=== PATIENT | female | born 1950 | race Caucasian/White ===

== ENCOUNTER 2016-08-24 19:31 | Emergency (ER) | payer OTHER ==
[~2016-08-24] VITALS: Ht 162.6 cm; Wt 72.6 kg
--- NOTE | 2016-08-24 20:22 | ED DYSPNEA/ASTHMA COMPLAINT ---
History of Present Illness General Chief Complaint: General Adult Stated Complaint: PT HAS BEEN ILL FOR 11DYS FLU SYMPTOMS Source: patient Exam Limitations: no limitations Vital Signs & Intake/Output Vital Signs & Intake/Output Vital Signs Date Time Temp Pulse Resp B/P Pulse O2 O2 Flow FiO2 Ox Delivery Rate 08/24 2200 97.0 80 18 160/80 97 Room Air 08/24 2037 96 Room Air 08/24 2017 98.1 81 18 152/90 94 Room Air ED Intake and Output 08/25 0000 08/24 1200 Intake Total Output Total Balance Patient 160 lb Weight Allergies Coded Allergies: Sulfa (Sulfonamide Antibiotics) (Severe, ANAPHYLAXIS 08/24/16) strawberry (Severe, ANAPHYLAXIS 08/24/16) Penicillins (ITCHING 08/24/16) Reconcile Medications Acetaminophen 500 MG TABLET 2 TAB PO PRN PAIN (Reported) Amlodipine Besylate 10 MG TABLET 1 TAB PO DAILY BP (Reported) Azithromycin (Zithromax) 250 MG TABLET 1 DP PO AD strep throa Levothyroxine Sodium 100 MCG TABLET 1 TAB PO DAILY THYROID (Reported) Triage Note: PT TO TRIAGE WITH C/O FEVER, CONGESTION, SORE THROAT, DRY COUGH, LLQ ABD INTERMITTENT PAIN, LEFT SIDED CHEST TIGHTNESS, HEADACHE, LOSS OF APPETITE x11 DAYS. PT AFEBRILE IN TRIAGE, VSS. FLU SWAB OBTAINED IN TRIAGE AND SENT TO LAB. Triage Nurses Notes Reviewed? yes Onset: Gradual Duration: day(s):, waxing and waning Timing: recent history Severity: moderate Activities at Onset: none Prior Episodes/Possible Cause: occasional episodes Modifying Factors: Worsens With: other. HPI: 66-year-old woman presents with 11 day history of sore throat headache, "not feeling well, ""weakness." She notes occasional cough but without phlegm. Her chest pain shortness of breath nausea vomiting diarrhea. She is otherwise well. Past History Travel History Traveled to [place] past 21 day No Medical History Any Pertinent Medical History? see below for history Cardiovascular: hypertension Endocrine: hypothyroidism Surgical History Surgical History: none Psychosocial History What is your primary language Korean Tobacco Use: Never used Family History Hx Contributory? No Review of Systems Review of Systems Constitutional: Reports: no symptoms. EENTM: Reports: no symptoms. Respiratory: Reports: no symptoms. Cardiovascular: Reports: no symptoms. GI: Reports: no symptoms. Genitourinary: Reports: no symptoms. Musculoskeletal: Reports: no symptoms. Skin: Reports: no symptoms. Neurological/Psychological: Reports: no symptoms. Hematologic/Endocrine: Reports: no symptoms. Immunologic/Allergic: Reports: no symptoms. All Other Systems: Reviewed and Negative Physical Exam Physical Exam General Appearance: well developed/nourished, no apparent distress Head: atraumatic, normal appearance, active bleeding Eyes: Bilateral: normal appearance. Ears, Nose, Throat: normal ENT inspection, pharyngeal erythema, no exudate, no swelling, no uvular deviation Neck: normal inspection, supple, full range of motion Respiratory: normal breath sounds, chest non-tender, no respiratory distress, quiet respiration Cardiovascular: regular rate/rhythm Gastrointestinal: normal bowel sounds, soft, non-tender, no organomegaly Extremities: normal inspection, normal capillary refill, normal range of motion Neurologic/Psych: no motor/sensory deficits, awake, alert, oriented x 3 Skin: intact, normal color, warm/dry Core Measures ACS in differential dx? No Severe Sepsis Present: No Septic Shock Present: No Progress Differential Diagnosis: strep vs influenza vs bronchitis vs pneumonia Plan of Care: Orders Procedure Date/time Status THROAT CULTURE W/QUICK STREP 08/24 2022 Complete RAPID VIRAL INFLUENZA A 08/25 1939 Complete URINALYSIS 08/25 1939 Complete TROPONIN LEVEL 08/25 1939 Complete LIPASE 08/25 1939 Complete COMPREHENSIVE METABOLIC PANEL 08/25 1939 Complete CBC WITHOUT DIFFERENTIAL 08/25 1939 Complete AMYLASE 08/25 1939 Complete EKG 08/25 1939 Active Laboratory Tests 08/24/162136: Urinalysis LIGHT H, Urine Color YEL, Urine Clarity CLEAR, Urine pH 6.0, Ur Specific [place] >= 1.030, Urine Protein TRACE H, Urine Ketones NEG, Urine Nitrite NEG, Urine Bilirubin NEG, Urine Urobilinogen 1.0, Ur Leukocyte Esterase NEG, Ur Microscopic SEDIMENT EXAMINED, Urine RBC RARE, Urine WBC RARE, Ur Epithelial Cells FEW, Urine Bacteria FEW H, Urine Mucus MOD H, Urine Hemoglobin NEG, Urine Glucose NEG 08/24/162020: Anion Gap 10, Estimated GFR > 60, BUN/Creatinine Ratio 16.3, Glucose 92, Calcium 9.3, Total Bilirubin 0.3, AST 17, ALT 35, Alkaline Phosphatase 94, Troponin I < 0.01, Total Protein 7.4, Albumin 3.9, Globulin 3.5, Albumin/Globulin Ratio 1.1, Amylase 60, Lipase 187, CBC w Diff NO MAN DIFF REQ, RBC 5.67 H, MCV 73.1 L, MCH 23.0 L, RDW 17.1 H, MPV 8.6, Gran % 63.2, Lymphocytes % 23.1, Monocytes % 11.9 H, Eosinophils % 1.4, Basophils % 0.4, Absolute Granulocytes 6.1, Absolute Lymphocytes 2.2, Absolute Monocytes 1.1 H, Absolute Eosinophils 0.1, Absolute Basophils 0, PUBS MCHC 31.5 L Microbiology 08/25 2019 NASOPHARYN: Influenza Virus A & B Rapid Smear - COMP Diagnostic Imaging: Viewed by Me: Radiology Read. Discussed w/RAD: Radiology Read. CXR Impression: no acute abnormality, no infiltrates, normal size heart, normal mediastinum Initial ED EKG: normal axis, normal intervals, normal p-waves, normal QRS complex, normal sinus rhythm Comments: PATIENT: ALAN HAMEED PRESENT AGE: 66 PATIENT ACCOUNT NO: [id number] : 49 LOCATION: [facility] ORDERING PHYSICIAN: TORI PICHARDO MD SERVICE DATE: 08/24/16-2024 EXAM TYPE: RAD - XRY-CHEST XRAY, PA AND LATERAL EXAMINATION: XR CHEST CLINICAL INFORMATION: Cough COMPARISON: None TECHNIQUE: 2 views of the chest were obtained. FINDINGS: Heart size is normal. Mediastinal contours are normal. Lungs are clear without consolidation, effusion or pneumothorax. Visualized osseous structures appear intact. Surgical clips noted in the upper abdomen. IMPRESSION: No acute cardiopulmonary process DICTATED BY: LAURA RICH MD DATE/TIME DICTATED:08/24/162112 IT PROGRAM MANAGER:MARCY DATE/TIME TRANSCRIBED:08/24/162112 CONFIDENTIAL, DO NOT COPY WITHOUT APPROPRIATE AUTHORIZATION. <Electronically signed in Other Vendor System> SIGNED BY: LAURA IRCH MD 08/24/162116 Departure Departure Disposition: HOME OR SELF CARE Condition: Stable Clinical Impression Primary Impression: Strep throat Departure Forms: Customer Survey General Discharge Information Prescriptions: Current Visit Scripts Azithromycin (Zithromax) 1 DP PO AD #4 TAB Comments discussed with patient at length... pt give macrolide given her allergies... close follow up advised. Critical Care Note Critical Care Note Critical Care Time: non-applicable
[2016-08-24] MEDS ORDERED: AMLODIPINE BESY10 M1 PO (20:28)
[2016-08-24] MEDS ORDERED: ACETAMINOPHEN500 M4 PO (20:28)
[2016-08-24] MEDS ORDERED: LEVOTHYROXINE100 MC1 PO (20:28)
[2016-08-24 20:42] LABS: ABSOLUTE BASOPHIL COUNT 0 /CUMM (0.0-0.2); ABSOLUTE EOSINOPHIL COUNT 0.1 /CUMM (0.0-0.7); ABSOLUTE GRANULOCYTE CT 6.1 /CUMM (1.4-6.5); ABSOLUTE LYMPH COUNT 2.2 /CUMM (1.2-3.4); ABSOLUTE MONOCYTE COUNT 1.1 /CUMM (0.10-0.60); BASOPHIL % 0.4 % (0.0-2.0); EOSINOPHIL % 1.4 % (0-5); GRANULOCYTE % 63.2 % (42.2-75.2); HEMATOCRIT 41.4 % (37-47); MEAN CORPUSCULAR HGB CONC 31.5 G/DL (33.0-37.0); MEAN CORPUSCULAR VOLUME 73.1 FL (81.0-99.0); MEAN PLATELET VOLUME 8.6 FL (7.4-10.4); PLATELET COUNT 251 /CUMM (130-400); RBC DISTRIBUTION WIDTH 17.1 % (11.5-14.5); RED BLOOD CELL CT 5.67 /CUMM (4.20-5.40); WHITE BLOOD CELL COUNT 9.6 /CUMM (4.8-10.8)
--- NOTE | 2016-08-24 21:17 | RADIOLOGY REPORT ---
EXAMINATION: XR CHEST CLINICAL INFORMATION: Cough COMPARISON: None TECHNIQUE: 2 views of the chest were obtained. FINDINGS: Heart size is normal. Mediastinal contours are normal. Lungs are clear without consolidation, effusion or pneumothorax. Visualized osseous structures appear intact. Surgical clips noted in the upper abdomen. IMPRESSION: No acute cardiopulmonary process
[2016-08-24 22:01] VITALS: BP 160/80
[2016-08-24] MEDS ORDERED: ZITHROMAX250 M2 PO (22:01)
== END 2016-08-24 22:34 ==
LOC: ERH 19:31
PROVIDERS: Pediatrics
DX: J02.0 Streptococcal pharyngitis (principal); R51 Headache; R53.1 Weakness; I10 Essential (primary) hypertension
CPT/HCPCS: 81001; 87804; 87804-59; 93005; 93010